=== PATIENT | male | born 1985 | race Caucasian/White ===

== ENCOUNTER 2021-04-18 09:55 | Emergency (ER) | payer OTHER, SELFPAY ==
--- NOTE | ~2021-04-18 | XR_ITS ---
EXAMINATION: XR chest 2V DATE: 04/18/2021 11:39 INDICATION: Lightheadedness and dizziness TECHNIQUE: Frontal and lateral views of the chest are obtained COMPARISON: None available FINDINGS: The lungs are free of acute opacities. There is no pleural effusion or pneumothorax. The ca rdiomediastinal silhouette is normal. There is mild thoracic spondylosis. IMPRESSION: 1. No acute cardiopulmonary abnormality. Reviewed, dictated and finalized at location A.
[2021-04-18 10:00] VITALS: BP 131/84; PULSE 71; RESP 17; TEMP 36.3; O2SAT 100
--- NOTE | 2021-04-18 10:35 | ED.HA ---
HPI - Headache General Chief Complaint: Headache Stated Complaint: DIAZ/LIGHTHEADED/NAUSEA Time Seen by Provider: 04/18/21 10:35 Source: patient and family Mode of arrival: ambulatory Limitations: no limitations History of Present Illness HPI Narrative: Patient is a 35-year-old male with a history of migraine headaches who presents for evaluation of headache pain. Pain began early this morning, no thunderclap sensation, reported as a dull, aching headache pain in the front of his head without radiation. No thunderclap sensation. No fever, vision changes or neck pain. Mild nausea without vomiting. No aura. Patient has a history of migraine headaches, states this is more severe than normal but is otherwise typical of his migraines. He denies ear pain. No hearing impairment. No recent trauma or head injury. Patient states he had an episode of lightheadedness and dizziness earlier this morning but that has since resolved. No chest pain or shortness of breath. No leg pain or calf pain. No recent car or air travel. Patient has not taken any medication. Related Data Allergies Allergy/AdvReac Type Severity Reaction Status Date / Time No Known Drug Allergies Allergy Verified 11/22/13 16:08 Review of Systems Review of Systems: Narrative: CONSTITUTIONAL: Denies fever, chills, or sweats. EYES: Denies current visual changes, redness, or discharge. ENT: Denies rhinorrhea, congestion, sore throat, or otalgia. CARDIOVASCULAR: Denies chest pain, palpitations, or edema. RESPIRATORY: Denies cough or dyspnea. GASTROINTESTINAL: Denies abdominal pain, nausea without vomiting GENITOURINARY: Denies dysuria or hematuria. SKIN: Denies rash or itching. MUSCULOSKELETAL: Denies back pain, joint pain, or myalgia. NEUROLOGIC: Reports headache without numbness or weakness. Exam Narrative: Exam Narrative: GENERAL: Awake, alert, conversant HEAD: Normocephalic, atraumatic. EYES: PERRLA and EOMI. ENT: Nares clear, no rhinorrhea or epistaxis. Mucous membranes moist. NECK: Supple. CHEST: No respiratory distress, breathing even and non labored HEART: Regular rate, sinus rhythm ABDOMEN:Non distended, non tender EXTREMITIES: Normal range of motion. No edema. SKIN: Warm, dry, no rash. NEURO:No focal deficits. Alert and oriented x3. Finger to nose intact bilaterally. EOMs intact without nystagmus. No facial droop/asymmetry noted bilaterally. Grimace intact. Intact sensation in face. Hearing intact bilaterally. Shoulder shrug intact. Strength 5/5 bilateral upper extremities. Strength 5/5 bilateral lower extremities. Reflexes 2+ patellar. Heel to caruso intact bilaterally. Ambulatory exam deferred. Course Vital Signs Vital signs: Vital Signs Temperature 36.3 C L 04/18/21 10:00 Pulse Rate 71 04/18/21 10:00 Respiratory Rate 17 04/18/21 10:00 Blood Pressure 131/84 04/18/21 10:00 Pulse Oximetry 100 04/18/21 10:00 Temperature 36.3 C L 04/18/21 10:00 Pulse Rate 71 04/18/21 10:00 Respiratory Rate 17 04/18/21 10:00 Blood Pressure 131/84 04/18/21 10:00 Pulse Oximetry 100 04/18/21 10:00 MDM - Headache MDM Narrative Medical decision making narrative: The patient was evaluated in the emergency department for headache. At time of assessment,ABCs intact and vital signs are stable. Exam reassuring. Normal neurological exam. Patient's headache pain was not sudden or maximal in onset. There are no focal deficits on exam. Subarachnoid hemorrhage is felt to be unlikely given the clinical symptoms and exam findings. There is no history of fever and neck is supple to evaluation without meningismus. Meningitis is felt to be unlikely. No traumatic history or signs of trauma on evaluation. Risk factors for cerebral venous thrombosis reviewed, no visual acuity change to suggest this diagnosis. No ocular signs of acute glaucoma. Patient's headache is felt to be benign, most likely consistent with migraine headache and reasonable for outpatient managemen
--- NOTE | 2021-04-18 11:24 | ECG_ITS ---
Measurements Intervals [place] Rate: 67 P: 48 IA: 185 QRS: 51 QRSD: 93 T: 22 QT: 368 QTc: 388 Interpretive Statements SINUS RHYTHM NORMAL ECG Electronically Signed On 04-19-2021 10:12:06 CDT by Taran Landry D.O.
[2021-04-18] MEDS: METOCLOPRAMIDE HCL INJ 10 MG/2 ML VIAL IV PUSH (12:09)
[2021-04-18] MEDS: SODIUM CHLORIDE 0.9% IV 1,000 ML 999 ML IV CONT (12:09)
[2021-04-18] MEDS: MAGNESIUM SULF 2 GM/WATER 50ML 2 GM/50 ML BAG IVPB (12:09)
[2021-04-18 12:46] LABS: Basophils Percent Auto 0.3 % (0.2-1.2); Eosinophils Percent Auto 0.4 % (0-4.4); Hematocrit 41.4 % (42.0-52.0); Hemoglobin 14.1 g/dL (14.0-18.0); Immature Granulocyte Absolute 0.04 K/mm3 (0.00-0.031); Immature Granulocyte Percent A 0.4 % (0-0.5); Lymphocytes Absolute Auto 0.89 K/mm3 (0.9-3.2); Lymphocytes Percent Auto 9.6 % (18.3-44.2); Mean Corpuscular HGB Conc 34.1 g/dl (32-36); Mean Corpuscular Hemoglobin 29.8 pg (26-34); Mean Corpuscular Volume 87.5 fl (80-100); Mean Platelet Volume 10.7 fl (7.4-10.4); Monocytes Absolute Auto 0.4 K/mm3 (0.1-0.6); Monocytes Percent Auto 4.1 % (2.6-8.5); Neutrophils Absolute Auto 7.9 K/mm3 (1.3-6.7); Neutrophils Percent Auto 85.2 % (45.5-73.1); Platelet Count Result 201 k/mm3 (150-375); Red Blood Count 4.73 M/mm3 (4.6-6.20); Red Cell Distribution Width 12.7 % (11.5-14.5); White Blood Count 9.3 K/mm3 (4.5-10.0)
[2021-04-18 12:58] LABS: Anion Gap 9 mmol/L (8-16); Blood Urea Nitrogen 11 mg/dL (9-20); Calcium 9.3 mg/dL (8.4-10.2); Carbon Dioxide 26 mmol/L (22-30); Chloride 103 mmol/L (98-107); Estimated CRCL calculation 145 ml/min; Estimated Glomerular Filt Rate > 60; Glucose 104 mg/dL (75-110); Large Platelets Present; Platelet Estimate Adequate (Adequate); Potassium 3.9 mmol/L (3.4-5.0); Sodium 138 mmol/L (137-145)
[2021-04-18 13:07] LABS: Troponin I < 0.012 ng/mL (0.000-0.034)
[2021-04-18] MEDS: KETOROLAC 15 MG/ML VIAL (*BKC) IV PUSH (14:06)
== END 2021-04-18 14:22 | disposition home or self-care (01) ==
PROVIDERS: Emergency Provider Emergency Medicine
DX: G43.909 Migraine, unspecified, not intractable, without status migrainosus (principal)
CPT/HCPCS: 36415; 71046; 80048; 84484; 85025; 85055; 93005; 96361; 96365; 96375; 99284; J0131; J1885; J2765; J3475; J7030